=== PATIENT | female | born 1980 | race Two or more races ===

== ENCOUNTER 2020-02-23 09:23 | Outpatient (CLI) | payer OTHER | END 2020-02-23 09:39 | disposition home or self-care (01) | LOC: RX STUDY 09:23 | PROVIDERS: ATTEND Obstetrics & Gynecology Reproductive Endocrinology | DX: N93.0 Postcoital and contact bleeding (principal) ==

== ENCOUNTER 2021-11-16 09:02 | Outpatient (CLI) | payer OTHER | END 2021-11-16 09:11 | disposition home or self-care (01) | LOC: RX STUDY 09:02 | PROVIDERS: ATTEND Obstetrics & Gynecology Reproductive Endocrinology | DX: Q52.8 Other specified congenital malformations of female genitalia (principal) ==